=== PATIENT | male | born 2005 | race Caucasian/White ===

== ENCOUNTER 2024-12-24 19:27 | Emergency (ER) | payer OTHER, SELFPAY ==
[2024-12-24 19:28] VITALS: BP 117/81; PULSE 82; RESP 14; TEMP 36.6; O2SAT 98; BMI 22.1
--- NOTE | 2024-12-24 21:25 | EDS_ITS ---
HPI History of Present Illness HPI Narrative: Concern for right long finger foreign body. Chief Complaint: Wound Informant: patient and parent Occured/Mechanism Mechanism/Context: Yes injury Onset/Context/Timing Onset: Weeks Context: Sudden Onset Timing: Continuous Quality of Pain: Sharp Current Severity: Mild Maximum Severity: Mild Associated Symptoms Associated Symptoms: Negative for Parasthesia, Weakness or Loss of Funtion Narrative Narrative: 19-year-old sgbuc-hzfa-uievdfch male. No significant past medical history. Tetanus up-to-date. Was fishing 3 to 4 weeks ago. Said he caught a blue pill extending on his right long finger palmar aspect by his PIP. He said he thinks there is a piece of thin in there because he feels a foreign body and he thought it looked irregular on the back of the fish. Within the last week it became infected he went to an urgent care they put him on Keflex. He said the swelling is getting better but he still thinks there is a foreign body in there. He and his father who is with him want me to incise this area and see if I can find any foreign body. Tetanus Immunization: <5 years Prior similar symptoms: No Recent Illness/Hospitalization: No PFSH PFSH Medical History no medical history no medical history Home Medications ?Medication ?Instructions ?Recorded ?Last Taken ?Type cephalexin 500 mg capsule 500 mg PO Q6 7 days #28 CAPS ULES 12/24/24 Unknown Rx Allergy/AdvReac Type Severity Reaction Status Date / Time No Known Allergies Allergy Verified 12/24/24 19:28 Social History Smoking Status: Never smoker ROS ROS ED ROS Narrative Denies recent illness. Constitutional Constitutional ED: Denies chills or fever(s) Eyes Eyes: Denies blurry vision ENT ENT ED: Denies ear pain Cardiovascular Cardiovascular: Denies chest pain Respiratory/Chest Respiratory/Chest: Denies cough or dyspnea Gastrointestinal Gastrointestinal: Denies abdominal pain Genitourinary Genitourinary ED: Denies hematuria Musculoskeletal Musculoskeletal: Denies back pain Integumentary Denies abscess Neurologic Neurologic: Denies headache(s) Psychiatric Psychiatric: Denies anxiety Endocrine Endocrinology: Denies cold intolerance Hematologic/Lymphatic Hematologic/Lymphatic: Denies easy bleeding, easy bruising or lymphadenopathy Allergic/Immunologic Allergic/Immunologic ED: Denies mouth swelling, tongue swelling or urticaria EXAM Physical Exam Narrative Exam Narrative: 9-year-old male vital signs stable afebrile. No acute distress. Accompanied by his father. H EENT exam pupils round reactive light. Mytrex membranes. Neck nontender. No JVD. No lymphadenopathy. Lungs clear to auscultation. Heart regular rhythm rate about 80 no murmur. Abdomen soft nontender. Moving all 4 extremities. Neurovascularly intact. Right hand palmar aspect right long finger at the PIP skin crease. He has full flexion extension there is mild swelling of the finger. Currently no signs of tenosynovitis. He has full flexion and extension. I do not feel foreign body. There is no palmar tenderness. No forearm tenderness. No axillary lymphadenopathy. Const Vital Signs: 12/24/24 19:28 Temperature 98 F Temperature Source Temporal Pulse Rate 82 Respiratory Rate 14 Blood Pressure 117/81 H Blood Pressure Mean 93 Pulse Ox 98 Oxygen Delivery Method Room Air Positive well nourished and well developed; Negative for obese, cachectic, contractures or unkempt General Appearance ED: well developed and NAD; Negative for unkempt, cachectic, contractures, cyanotic or diaphoretic Nutritional Appearance: Negative for cachectic or obese HEENT Reports moist mucous membranes normocephalic and atraumatic; Negative for trauma or tenderness Eyes PERRL and EOMs intact bilaterally Neck full ROM and supple General: Negative for tenderness Lymph Lymphatic: Negative for other Chest Wall inspection of chest normal and palpation of chest normal Resp normal respiratory effort and clear to auscultation bilaterally Auscultation: Negative for rales, rhonchi, wheezes or diminished lung sounds Cardio regular rate, regular rhythm, S1 normal heart sound, S2 normal heart sound and no murmurs Rate: Negative for bradycardia or tachycardic Rhythm: Negative for abnormal rhythm GI non-tender, non-distended and no masses Palpation: soft; Negative for tender or guarding Back/Spine no CVA tenderness Extremity full ROM; Negative for normal to inspection Extremity Narrative: Mild swelling right long finger. Full flexion extension. No obvious foreign body. Prior injury to the palmar aspect of the right long finger at the PIP skin crease. Neuro oriented x3, CN's II-XII intact bilaterally, moves all extremities and no focal motor deficits Sensorium / Orientation: alert, oriented to person, oriented to place and oriented to time; Negative for orientation impaired, lethargic or stuporous Motor Exam: strength 5/5 throughout Psych mental status grossly normal Appearance: Negative for unkempt Mood & Affect: Negative for depressed, anxious or tearful Skin Lesions: no lesions Rashes: no rashes MDM MDM MDM Narrative Medical decision making narrative: 19-year-old mydzx-obvk-hdgpnkwf Fuentes male send by a fish 3 to 4 weeks ago. Currently on antibiotics for an infection of his right long finger. He and his dad are concerned as a piece of the fish is thin in his finger. They want me to digital block it and incise this area and see if I can find the foreign material. I explained him this may be difficult and hard to find. He said it is improving on antibiotics. They still wanted me to try. Digital block of the right long finger. Once proper anesthetic was obtained. The finger was thoroughly cleaned prior to the digital block. Shur-Clens. Saline. I made about a 1 to 2 cm vertical incision along the flexor surface of the long finger PIP joint. I did not see any foreign body. No pus was expressed. Discussed with the patient. We placed on Keflex 4 times a day for a week. Suture removed in 1 week. Follow-up with plastic surgery if he still feels a foreign body. History & Record Review Discussion w/independent historian: Patient and Family Additional record(s) reviewed:: No prior records Procedures Other Procedures Procedure(s): Right long finger incision and drainage. Cleaned with Shur-Clens and saline. Digital block. Once proper anesthetic was obtained. I made a vertical incision on the Lexer aspect of the right long finger along the PIP skin crease. Used a turnicot to stop the bleeding. I could not find or feel or see any type of foreign body. No pus was expressed. Patient be discharged to home. Keflex 4 times a day. Ice and Motrin. Follow-up with plastic surgery if not improving. Discharge Plan Triage Chief Complaint: Wound ED Provider: Aníbal Rodriguez Dx/Rx/DC Orders Clinical Impression: Infected finger Instructions: ED Cellulitis Prescriptions: New cephalexin 500 mg capsule 500 mg PO Q6 7 Days Qty: 28 0RF Primary Care Provider: Maxi Yates Referrals: Maxi Yates DO [Primary Care Provider] - Miles Blackmon MD [Med Staff - Active Staff] - 1 Week if not improving Activity Restrictions/Additional Instructions: I do not see a foreign body. The finger is infected. Antibiotic Keflex 4 times a day for 1 week This should progressively improve. If it is looking a lot worse return to the emergency department. If it is getting better but she still think there is something in the area you can call and follow-up with the plastic surgeon Dr. Miles Blackmon. Ice and elevate to decrease pain and swelling. Motrin to decrease swelling. Remove the stitch in 1 week. If the finger gets wet clean it and dry it. Do not let it soak in bath water or dishwater. Print Language: [place] Disposition Disposition: Home, Self Care
--- OUTSIDE RECORDS SUMMARY | 2024-12-24 21:29 | XMS RPT_ITS | CCD ---
Author Organization [facility] Care Team Providers Care Payroll And Benefits Analyst Name Role Phone Maxi Castillo DO Primary Care Provider [phone] MAXI CASTILLO Primary Care Unavailable KIKE HERNANDEZ Attending Unavailable Maxi Castillo Referring Unavailable Maxi Castillo Primary Care Unavailable Pavel Gomez Attending Unavailable Medications Current Medications Medication Drug Class(es) Dates Sig (Normalized) Sig (Original) cephalexin 500 mg oral capsule (1 source) Cephalosporin Antibacterial Start: 12-16-2024 End: 12-21-2024 take 1 capsule by mouth four times daily cephALEXin (KEFLEX) 500 mg capsule Indications: Infected foreign body of finger of right hand, initial encounter Take 1 capsule by mouth four times daily for 5 days. 20 capsule 12/16/2024 12/21/2024 Active Problems Problem Classification Problem Date Documented Da te Episodic/Chronic Skin and subcutaneous tissue infections (1 source) Local infection of the skin and subcutaneous tissue, unspecified; Translations: [Infected foreign body of finger of right hand, initial encounter] Onset: 12-16-2024 Episodic Superficial injury; contusion (3 sources) Foreign body in hand with infection; Translations: [Superficial foreign body of unspecified finger, initial encounter] Onset: 12-16-2024 12-16-2024 Episodic Results Test Name Value Interpretation Reference Range Facil eva Armenta 12-16-2024 CNOV Office Visit ([facility] ) KIMBERLEY UNDERWOOD ([id number]) 1 M Date Time Provider Department 12/16/24 12:45 PM KIKE HERNANDEZ [facility] During your visit today, we recorded the following information about you: Temperature Pulse Respiration Blood pressure 97.7 degrees 68/minute 18/minute 129/74 Weight 66.2 kg Kike Hernandez MD 12/16/2024 3:20 PM Signed [facility] Subjective Kimberley Underwood is a 19 year old male. Patient presents with: Foreign Body: R hand middle finger fish scale x4 weeks Patient presents to the express care to have piece of fish spine or scale removed from his finger. He had a puncture from a fish 3 weeks ago in his right middle finger. He reports a piece definitely broke off but he has been unable unable to remove it. There has been increasing redness and swelling. No drainage or fever. Foreign Body Review of Systems Objective BP 129/74 Pulse 68 Temp 36.5 ?C (97.7 ?F) Resp 18 Wt 66.2 kg (145 lb 15.1 oz) SpO2 99% Physical Exam Constitutional: General: He is not in acute distress. Musculoskeletal: Hands: Comments: Mild erythema and edema of the palmar proximal phalanx and PIP of the right middle finger. Full finger ROM without pain. Reported foreign body sensation with palpation at the palmar PIP joint. Neurological: Mental Status: He is alert. {ASSESSMENT/PLAN: 1. Infected foreign body of finger of right hand, initial encounter - ICD9: 915.7, ICD10: S60.459A, L08.9 - Begin treatment with - CEPHALEXIN 500 MG CAPSULE - CONSULT TO ORTHOPAEDICS to discuss foreign body evaluation and treatment. He will go to the ED with signs of worsening infection such as increasing redness, pain, swelling, purulent drainage, rapid spread to the hand/arm, or fever/malaise. Kike Hernandez MD Differential Diagnoses - joint/tendon infection is less likely for the following reason(s): No joint pain with ROM Procedures Allergies As of Date: 12/16/2024 (No Known Allergies) Date Reviewed: 12/16/2024 Reviewed by: Isabel Koch MA - Fully Assessed Reason for Visit: Foreign Body [1750] Cmt: R hand middle finger fish scale x4 weeks Primary Visit Diagnosis:Infected foreign body of finger of right hand, initial encounter [S60.459A, L08.9] Order(s):cephALEXin (KEFLEX) 500 mg capsuleTake 1 capsule by mouth four times daily for 5 days.Disp: 20 capsuleRfl: 0 CONSULT TO ORTHOPAEDICS [9026] Order #: [id number]: 1 FUTURE Prescriptions as of 12/16/2024 - cephALEXin (KEFLEX) 500 mg capsule Take 1 capsule by mouth four times daily for 5 days. Problem List As Of Date: 12/16/2024 (None) Prescriptions ordered this encounter Disp Refills Start End CEPHALEXIN 500 MG CAPSULE 20 c* 0 12/16/2024 12/21/2024 Route: PO Sig: Take 1 capsule by mouth four times daily for 5 days. Level of Service: OFFICE/OUTPATIENT [facility] 30 MINUTES [96842] Encounter Status:Closed by KIKE HERNANDEZ on 12/16/24 Normal [facility] Vital Signs Date Time Vital Sign Value Performing Clinician Ray frias 12-16-2024 13:09-0400 Body temperature 97.7 [degF] Kike Hernandez MD Work Phone: [facility] 12-16-2024 13:09-0400 Body weight 66.2 kg Kike Hernandez MD Work Phone: [facility] 12-16-2024 13:09-0400 Diastolic blood pressure 74 mm[Hg] Kike Hernandez MD Work Phone: [facility] 12-16-2024 13:09-0400 Heart rate 68 /min Kike Hernandez MD Work Phone: [facility] 12-16-2024 13:09-0400 Respiratory rate 18 /min Kike Hernandez MD Work Phone: [facility] 12-16-2024 13:09-0400 SaO2% (BldA) [Mass fraction] 99 % Kike Hernandez MD Work Phone: [facility] 12-16-2024 13:09-0400 Systolic blood pressure 129 mm[Hg] Kike Hernandez MD Work Phone: [facility] Encounters Encounter Date Encounter Type Care Provider Facility Start: 12-24-2024 End: 12-24-2024 Telephone encounter Kike Hernandez MD Work Phone: [facility] Comment on above: Patient Question; Or ders Start: 12-16-2024 ambulatory Maxi Castillo Facility:[facility] Start: 12-16-2024 End: 12-16-2024 Office outpatient new 30 minutes Kike Hernandez MD Work Phone: [facility] Comment on above: Infected foreign bod y of finger of right hand, initial encounter (Primary Dx) Start: 12-16-2024 End: 12-16-2024 ambulatory MAXI CASTILLO Facility:[facility] Plan of Treatment Date Care Activity Detail Author Start: 02-28-2025 Influenza vaccination Influenz a Vaccine (Season Ended) [facility] Start: 02-29-2024 Covid-19 Vaccine ( season) Covid-19 Vaccine ( season) [facility] Start: 2022 Hepatitis B Vaccine (1 of 3 - 19+ 3-dose series) Hepatitis B Vaccine (1 of 3 - 19+ 3-dose series) [facility] Start: 2022 Urine microalbumin profile DTa P,Tdap,Td Vaccine (1 - Tdap) [facility] Start: 2021 Anxiety Screening Anxiety Screening [facility] Start: 2021 Depression Screening Depression Scre ening [facility] Start: 2021 Hepatitis C screening Hepatitis C Sc reening [facility] Start: 2021 HIV screening HIV Screening [facility] Start: 2019 Meningococcal B Vacc ine (1 of 2 - Standard) Meningococcal B Vaccine (1 of 2 - Standard) [facility] Start: 2018 HPV Vaccine (1 - Mal e 3-dose series) HPV Vaccine (1 - Male 3-dose series) [facility] Start: 2017 Peds To Adult Transi tion Annual Assessment Peds To Adult Transition Annual Assessment [facility] Start: 2015 Peds To Adult Transi tion Initial Discussion Peds To Adult Transition Initial Discussion [facility] Payers Date Payer Category Payer Self-pay 2024 Unknown 0 Unknown [id number] Social History Date Type Detail Facility Start: 12-16-2024 Tobacco smoking status NHIS Never sm oked tobacco [facility] Start: 12-16-2024 History of Social function [facility] Start: 12-16-2024 Tobacco use panel [facility] Start: 2003 Sex assigned at Not on file C [facility] Telephone encounter Note 12-24-2024 Telephone Encounter - Dedra Gifford RN - 12/24/2024 4:12 PM EDT Note Date & Type Note Facility 12-24-2024 Telephone encount er Note She said she would have a PFA call Pt back. Dedra Gifford RN [facility] Note 12-24-2024 Telephone Encounter - Dedra Gifford RN - 12/24/2024 4:12 PM EDTTelephone Encounter - Dedra Gifford RN - 12/24/2024 1:28 PM EDT Note Date & Type Note Facility 12-24-2024 Miscellaneous Notes Formattin g of this note might be different from the original. She said she would have a PFA call Pt back. Dedra Gifford RN Pt called in and reports a PFA called him about his referral to Dr Ma. Pt states he is self-pay. I sent a message to Jaimie Irizarry about him. Waiting to hear back from her. Pt was sent to [employer] customer service per request. Dedra Gifford RN documented in this encounter [facility] Telephone encounter Note 12-24-2024 Telephone Encounter - Dedra Gifford RN - 12/24/2024 1:28 PM EDT Note Date & Type Note Facility 12-24-2024 Telephone encount er Note Pt called in and reports a PFA called him about his referral to Dr Ma. Pt states he is self-pay. I sent a message to Jaimie Irizarry about him. Waiting to hear back from her. Pt was sent to [employer] customer service per request. Dedra Gifford RN [facility] Progress note 12-16-2024 Note Date & Type Note Facility 12-16-2024 Note HNO ID: [id number] Author: KIKE HERNANDEZ MD Service: ? Author Type: Physician Type: Progress Notes Filed: 12/16/2024 15:20 Note Text: [facility] Subjective Kimberley Underwood is a 19 year old male. Patient presents with: Foreign Body: R hand middle finger fish scale x4 weeks Patient presents to the express care to have piece of fish spine or scale removed from his finger. He had a puncture from a fish 3 weeks ago in his right middle finger. He reports a piece definitely broke off but he has been unable unable to remove it. There has been increasing redness and swelling. No drainage or fever. Foreign Body Review of Systems Objective BP 129/74 Pulse 68 Temp 36.5 ?C (97.7 ?F) Resp 18 Wt 66.2 kg (145 lb 15.1 oz) SpO2 99% Physical Exam Constitutional: General: He is not in acute distress. Musculoskeletal: Hands: Comments: Mild erythema and edema of the palmar proximal phalanx and PIP of the right middle finger. Full finger ROM without pain. Reported foreign body sensation with palpation at the palmar PIP joint. Neurological: Mental Status: He is alert. {ASSESSMENT/PLAN: 1. Infected foreign body of finger of right hand, initial encounter - ICD9: 915.7, ICD10: S60.459A, L08.9 - Begin treatment with - CEPHALEXIN 500 MG CAPSULE - CONSULT TO ORTHOPAEDICS to discuss foreign body evaluation and treatment. He will go to the ED with signs of worsening infection such as increasing redness, pain, swelling, purulent drainage, rapid spread to the hand/arm, or fever/malaise. Kike Hernandez MD Differential Diagnoses - joint/tendon infection is less likely for the following reason(s): No joint pain with ROM Procedures [facility] History of Present illness Narrative 12-16-2024 Kike Hernandez MD - 12/16/2024 1:22 PM EDT Note Date & Type Note Facility 12-16-2024 History of Presen t illness Narrative Images from the original note were not included. [facility] Subjective Kimberley Underwood is a 19 year old male. Patient presents with: Foreign Body: R hand middle finger fish scale x4 weeks Patient presents to the express care to have piece of fish spine or scale removed from his finger. He had a puncture from a fish 3 weeks ago in his right middle finger. He reports a piece definitely broke off but he has been unable unable to remove it. There has been increasing redness and swelling. No drainage or fever. Foreign Body Review of Systems Objective BP 129/74 Pulse 68 Temp 36.5 C (97.7 F) Resp 18 Wt 66.2 kg (145 lb 15.1 oz) SpO2 99% Physical Exam Constitutional: General: He is not in acute distress. Musculoskeletal: Hands: Comments: Mild erythema and edema of the palmar proximal phalanx and PIP of the right middle finger. Full finger ROM without pain. Reported foreign body sensation with palpation at the palmar PIP joint. Neurological: Mental Status: He is alert. {ASSESSMENT/PLAN: 1. Infected foreign body of finger of right hand, initial encounter - ICD9: 915.7, ICD10: S60.459A, L08.9 - Begin treatment with - CEPHALEXIN 500 MG CAPSULE - CONSULT TO ORTHOPAEDICS to discuss foreign body evaluation and treatment. He will go to the ED with signs of worsening infection such as increasing redness, pain, swelling, purulent drainage, rapid spread to the hand/arm, or fever/malaise. Kike Hernandez MD Differential Diagnoses - joint/tendon infection is less likely for the following reason(s): No joint pain with ROM Procedures documented in this encounter [facility] Evaluation note Note Date & Type Note Facility Evaluation note Diagnosis Infected foreign body of finger of right hand, initial encounter- Primary documented in this encounter [facility] Summary Purpose Family History No Family History Records FoundNo Family History Records Found Advance Directives No Advanced Directives Records FoundNo Advanced Directives Records Found Additional Source Comments Source Comments (unrecognize d section and content) In the event this informatio n is protected by the Federal Confidentiality of Alcohol and Drug Abuse Patient Records regulations: The Federal rules restrict any use of the information to criminally investigate or prosecute any alcohol or drug abuse patient.[facility] the event this information is protected by the Federal Confidentiality of Alcohol and Drug Abuse Patient Records regulations: The Federal rules restrict any use of the information to criminally investigate or prosecute any alcohol or drug abuse patient.[facility] Reason for Visit (unrecogniz ed section and content) Reason Comments Foreign Body R hand middle finger fish scale x4 weeks Reason Comments Patient Question Orders Care Teams (unrecognized sec tion and content) Payroll And Benefits Analyst Relationship Specialty [place] [address] [place] [address] PCP - General Internal Medicine 08/27/16 Payroll And Benefits Analyst Relationship Specialty [place] [address] [place] [address] PCP - General Internal Medicine 08/27/16 (unrecognized sect ion and content) No Status Records FoundNo Status Records Found INFORMATION SOURCE (unrecogn ized section and content) DATE CREATED AUTHOR 12/19/2024 [facility] DATE CREATED AUTHOR AUTHOR'S DEANNA LOPEZ 12/19/2024 [facility] FOR RECORDS PERTAINING TO PATIENTS WHO ARE OR HAVE BEEN ENROLLED IN A CHEMICAL DEPENDENCY/SUBSTANCEABUSE PROGRAM, SOME INFORMATION MAY BE OMITTED. This clinical summary was aggregated from multiple sources. Caution should be exercised in using it in the provision of clinical care. This summary normalizes information from multiple sources, and as a consequence, information in this document may materially change the coding, format and clinical context of patient data. In addition, data may be omitted in some cases. CLINICAL DECISIONS SHOULD BE BASED ON THE PRIMARY CLINICAL RECORDS. [employer] [place] provides no warranty or guarantee of the accuracy or completeness of information in this document.
[2024-12-24] MEDS: Lidocaine 1% (20 ml mdv) 20 ML Vial 10 ML INFILT (23:24)
[2024-12-24 23:25] VITALS: BP 125/84; PULSE 78; RESP 16; TEMP 36.6; O2SAT 99
== END 2024-12-24 23:26 | disposition home or self-care (01) ==
PROVIDERS: Emergency Provider Emergency Medicine; PCP Family Medicine; Visit Provider Emergency Medicine
DX: L03.011 Cellulitis of right finger (principal)
CPT/HCPCS: 10060; 99283